=== PATIENT | female | born 2000 | race Caucasian/White ===

== ENCOUNTER 2020-12-31 13:41 | Emergency (ER) | payer BC ==
[~2020-12-31] VITALS: Ht 172.7 cm; Wt 62.0 kg
[2020-12-31] MEDS ORDERED: ketorolac tromethamine 15mg/ml inj. IM ONE (16:20)
[2020-12-31] MEDS ORDERED: IBUP-1984 PO (16:29)
[2020-12-31 16:50] VITALS: BP 124/84
== END 2020-12-31 17:04 | disposition home or self-care (01) ==
LOC: ER 13:41
DX: R07.89 Other chest pain (principal); Z79.899 Other long term (current) drug therapy
CPT/HCPCS: 93005; 96372; 99283; J1885